=== PATIENT | male | born 1985 | race Caucasian/White ===

== ENCOUNTER 2016-08-22 04:27 | Emergency (ER) | payer OTHER ==
[~2016-08-22 04:27] MED LIST: CLEOCIN HCL300 M1 PO; NO MEDICATIONS
== END 2016-08-22 04:51 | disposition home or self-care (01) ==
LOC: SED 04:27
DX: L50.0 Allergic urticaria (principal); F17.200 Nicotine dependence, unspecified, uncomplicated; Z88.5 Allergy status to narcotic agent
CPT/HCPCS: 99282

== ENCOUNTER 2017-01-05 17:36 | Emergency (ER) | payer OTHER | END 2017-01-05 19:30 | disposition left against medical advice (07) | LOC: SED 17:36 | DX: Z53.21 Procedure and treatment not carried out due to patient leaving prior to being seen by health care provider (principal) ==